=== PATIENT | male | born 1950 | race Caucasian/White ===

== ENCOUNTER 2017-03-02 13:34 | Emergency (ER) | payer MEDICARE, OTHER ==
[~2017-03-02] VITALS: Ht 172.7 cm; Wt 68.0 kg
[2017-03-02 13:39] VITALS: Ht 172.7 cm; Wt 68.0 kg
[2017-03-02] MEDS ORDERED: TERB15CR6 TOP (14:31)
--- NOTE | 2017-03-02 14:45 | ERD ---
ER Documentation Chief Complaint Chief Complaint LEFT FOOT PAIN DISCOMFORT HPI This is a 59-year-old male presenting to emergency department for bilateral foot pain. Patient states between his toes he has "thickened skin" with some itching. Patient states it is painful at times. Patient is a poor historian. No difficulty ambulating. No weakness. No numbness or tingling. No loss of sensation. ROS All systems reviewed and are negative except as per history of present illness. Medications Home Meds Active Scripts Terbinafine* (Athlete's Foot AF*) 1% - 15 Gm Cream..g., 1 APPLIC TOP BID, #1 TUB Prov:CHRISTINE PEÑATravis NAIL PROFESSIONAL 03/02/17 Allergies Allergies: Uncoded Allergies: PENICILLIN (Allergy, Mild, 12/25/10) PMhx/Soc History of Surgery: Yes (HERNIA) Anesthesia Reaction: No Hx Neurological Disorder: No Hx Respiratory Disorders: No Hx Cardiac Disorders: No Hx Psychiatric Problems: No Hx Miscellaneous Medical Probl: No Hx Alcohol Use: Yes Hx Substance Use: Yes (MARIJUANA) Hx Tobacco Use: Yes Physical Exam Vitals Vital Signs Date Time Temp Pulse Resp B/P Pulse Ox O2 Delivery O2 Flow Rate FiO2 03/02/17 13:39 98.0 77 18 135/75 98 Physical Exam Const: NAD, alert Head: Atraumatic Eyes: Normal Conjunctiva ENT: Normal External Ears, Nose and Mouth. Neck: Full range of motion..~ No meningismus. Resp: Clear to auscultation bilaterally Cardio: Regular rate and rhythm, no murmurs Abd: Soft, non tender, non distended. Normal bowel sounds Skin: No petechiae or rashes Back: No midline or flank tenderness Ext: Erythema and white, macerated skin between all toes on bilateral feet. No surrounding erythema, warmth or drainage. Neur: Awake and alert Psych: Normal Mood and Affect Procedures/MDM MDM: This is a 67-year-old male presenting to emergency department for bilateral foot pain. Patient is a poor historian. Patient states he has thickened skin and some itching between all toes on bilateral feet. Patient's physical exam consistent with tinea pedis. Low suspicion for secondary infection. No drainage, surrounding erythema or warmth. Patient has not tried any medications.Vital signs are stable. Patient is afebrile. Diagnosis tinea pedis. Patient is appropriate for outpatient management will be given prescription for terbinafine cream. Instructed patient to follow-up with primary care provider in the next 2-3 days for reassessment and additional management. Resources provided. Return to ED for any high fever, chest pain, difficulty breathing, shortness breath, wheezing, vomiting, diarrhea, abdominal pain or any new or worsening symptoms. Patient verbalizes understanding. All questions answered at discharge. Disclaimer: Inadvertent spelling and grammatical errors are likely due to EHR/ dictation software use and do not reflect on the overall quality of patient care. Also, please note that the electronic time recorded on this note does not necessarily reflect the actual time of the patient encounter. Departure Diagnosis: Primary Impression: Tinea pedis Laterality: bilateral Qualified Code: B35.3 - Tinea pedis of both feet Condition: Stable Patient Instructions: Athlete'S Foot Referrals: COMMUNITY CLINICS YOU HAVE RECEIVED A MEDICAL SCREENING EXAM AND THE RESULTS INDICATE THAT YOU DO NOT HAVE A CONDITION THAT REQUIRES URGENT TREATMENT IN THE EMERGENCY DEPARTMENT. FURTHER EVALUATION AND TREATMENT OF YOUR CONDITION CAN WAIT UNTIL YOU ARE SEEN IN YOUR DOCTORS OFFICE WITHIN THE NEXT 1-2 DAYS. IT IS YOUR RESPONSIBILITY TO MAKE AN APPOINTMENT FOR FOLOW-UP CARE. IF YOU HAVE A PRIMARY DOCTOR --you should call your primary doctor and schedule an appointment IF YOU DO NOT HAVE A PRIMARY DOCTOR YOU CAN CALL OUR PHYSICIAN REFERRAL HOTLINE AT IF YOU CAN NOT AFFORD TO SEE A PHYSICIAN YOU CAN CHOSE FROM THE FOLLOWING [facility] [address] [facility] [address] [facility] [address] [facility] [address] [facility] [address] [facility]. [address] [facility] YOU HAVE RECEIVED A MEDICAL SCREENING EXAM AND THE RESULTS INDICATE THAT YOU DO NOT HAVE A CONDITION THAT REQUIRES URGENT TREATMENT IN THE EMERGENCY DEPARTMENT. FURTHER EVALUATION AND TREATMENT OF YOUR CONDITION CAN WAIT UNTIL YOU ARE SEEN IN YOUR DOCTORS OFFICE WITHIN THE NEXT 1-2 DAYS. IT IS YOUR RESPONSIBILITY TO MAKE AN APPOINTMENT FOR FOLOW-UP CARE. IF YOU HAVE A PRIMARY DOCTOR --you should call your primary doctor and schedule and appointment IF YOU DO NOT HAVE A PRIMARY DOCTOR YOU CAN CALL OUR PHYSICIAN REFERRAL HOTLINE AT . IF YOU CAN NOT AFFORD TO SEE A PHYSICIAN YOU CAN CHOSE FROM THE FOLLOWING [facility]: [facility] [address] [place] [address] [facility] [address] [place] [address] [facility] [address] [place] [address] Additional Instructions: Call your primary care doctor TOMORROW for an appointment during the next 2-3 days.See the doctor sooner or return here if your condition worsens before your appointment time. Return to ED for any high fever, chest pain, difficulty breathing, shortness breath, wheezing, vomiting, diarrhea, abdominal pain or any new or worsening symptoms. CHRISTINE PEÑA NP Mar 02, 2017 14:45
== END 2017-03-02 15:01 | disposition home or self-care (01) ==
LOC: FTE 13:34
DX: B35.3 Tinea pedis (principal)
CPT/HCPCS: 99283

== ENCOUNTER 2017-07-20 14:45 | Emergency (ER) | END 2017-07-20 16:14 | disposition home or self-care (01) ==

== ENCOUNTER 2017-07-27 14:51 | Emergency (ER) | END 2017-07-27 16:06 | disposition home or self-care (01) ==

== ENCOUNTER 2017-08-29 14:31 | Emergency (ER) | END 2017-08-29 17:11 | disposition home or self-care (01) ==

== ENCOUNTER 2018-01-11 13:15 | Emergency (ER) | END 2018-01-11 17:32 | disposition home or self-care (01) ==